=== PATIENT | male | born 1990 | race Caucasian/White ===

== ENCOUNTER 2018-01-10 19:57 | Emergency (ER) | payer MEDICAID ==
[~2018-01-10] VITALS: Ht 180.3 cm; Wt 77.0 kg
[2018-01-10 20:05] VITALS: BP 150/77
[2018-01-10] MEDS ORDERED: LORazepam 1 MG tablet PO ONE (20:20)
== END 2018-01-10 20:48 | disposition home or self-care (01) ==
LOC: ER 19:58
DX: F41.9 Anxiety disorder, unspecified (principal)
CPT/HCPCS: 93005; 99283; 99284